=== PATIENT | female | born 1960 | race Caucasian/White ===

== ENCOUNTER 2024-06-26 11:15 | Emergency (ER) | payer BC | END 2024-06-26 11:52 | disposition home or self-care (01) | LOC: CSHERS 11:15 | DX: J11.1 Influenza due to unidentified influenza virus with other respiratory manifestations (principal) | CPT/HCPCS: 99282 ==

== ENCOUNTER 2025-01-01 09:20 | Outpatient (CLI) | payer BC | END 2025-01-01 09:21 | disposition home or self-care (01) | LOC: CSHSLEEP 09:20 | PROVIDERS: ATTEND Family Medicine | DX: G47.33 Obstructive sleep apnea (adult) (pediatric) (principal); G47.9 Sleep disorder, unspecified | CPT/HCPCS: 95800 ==

== ENCOUNTER 2025-03-23 08:47 | Outpatient (CLI) | payer BC | END 2025-03-23 08:48 | disposition home or self-care (01) | LOC: CSHSLEEP 08:47 | PROVIDERS: ATTEND Family Medicine | DX: G47.33 Obstructive sleep apnea (adult) (pediatric) (principal); G47.9 Sleep disorder, unspecified; G47.61 Periodic limb movement disorder | CPT/HCPCS: 95811 ==